=== PATIENT | female | born 1945 | race African-American/Black ===

== ENCOUNTER 2018-01-31 12:30 | Outpatient (RCR) | payer OTHER | END 2018-03-01 | disposition home or self-care (01) | LOC: PTY 12:30 | DX: M17.0 Bilateral primary osteoarthritis of knee (principal); M19.012 Primary osteoarthritis, left shoulder; Z87.39 Personal history of other diseases of the musculoskeletal system and connective tissue ==

== ENCOUNTER 2018-04-17 13:30 | Outpatient (RCR) | payer OTHER | END 2018-05-02 | disposition home or self-care (01) | LOC: PTY 13:30 | DX: M17.0 Bilateral primary osteoarthritis of knee (principal); M19.011 Primary osteoarthritis, right shoulder; E11.9 Type 2 diabetes mellitus without complications; M79.7 Fibromyalgia; F32.9 Major depressive disorder, single episode, unspecified; F41.9 Anxiety disorder, unspecified; M81.0 Age-related osteoporosis without current pathological fracture; M19.90 Unspecified osteoarthritis, unspecified site ==